=== PATIENT | female | born 1975 | race Caucasian/White ===

== ENCOUNTER 2017-07-05 00:24 | Emergency (ER) | payer BC ==
[~2017-07-05] VITALS: Ht 177.8 cm; Wt 119.4 kg
[2017-07-05] MEDS ORDERED: TYLENOL WITH C1 EACH PO (02:31)
[2017-07-05] MEDS ORDERED: AUGMENTIN875 MG PO (02:31)
[2017-07-05 02:41] VITALS: BP 152/94
== END 2017-07-05 02:42 | disposition home or self-care (01) ==
LOC: EME 00:24
DX: J01.90 Acute sinusitis, unspecified (principal)
CPT/HCPCS: 99281; 99283